=== PATIENT | male | born 1960 ===

== ENCOUNTER → 2020-06-17 10:22 | Outpatient (BNVA) | payer OTHER, SELFPAY | PROVIDERS: PCP Nurse Practitioner Family; Visit Provider Internal Medicine | DX: E66.9 Obesity, unspecified (principal); G47.33 Obstructive sleep apnea (adult) (pediatric); Z99.89 Dependence on other enabling machines and devices | CPT/HCPCS: 99212 ==

== ENCOUNTER 2020-12-29 07:13 | Outpatient (REF) | payer OTHER, SELFPAY ==
[2020-12-29 12:30] LABS: Alanine Aminotransferase 34 U/L (0-40); Albumin Level 4.2 g/dL (3.5-5.0); Alkaline Phosphatase 83 U/L (39-117); Anion Gap 15 (12-20); Aspartate Amino Transferase 20 U/L (5-37); Bilirubin Total 1.1 mg/dL (0.0-1.0); Blood Urea Nitrogen 15 mg/dL (9-16); Calcium 9.3 mg/dL (8.4-10.2); Carbon Dioxide 22 mmol/L (22-29); Chloride 108 mmol/L (96-108); Cholesterol 192 mg/dL; Estimated Glomerular Filt Rate > 60; Glucose Fasting 110 mg/dL (60-99); HDL Cholesterol 48 mg/dL; LDL Cholesterol Calculated 105 mg/dl; Potassium 4.1 mmol/L (3.3-5.1); Sodium 141 mmol/L (135-145); TSH reflex Free T4 2.91 uIU/mL (0.32-4.0); Triglycerides 199 mg/dL
[2020-12-29 13:10] LABS: Prostate Specific Antigen Scr 0.25 ng/mL (<0.05-4.0)
== END 2020-12-29 07:14 | disposition home or self-care (01) ==
LOC: HO.HMGCLDS 07:13
PROVIDERS: PCP Nurse Practitioner Family; Visit Provider Nurse Practitioner Family
DX: Z12.5 Encounter for screening for malignant neoplasm of prostate (principal); I10 Essential (primary) hypertension
CPT/HCPCS: 36415; 80053; 80061; 84153; 84443

== ENCOUNTER 2021-01-01 10:49 | Outpatient (REF) | payer OTHER, SELFPAY ==
--- NOTE | ~2021-01-01 | XR_ITS ---
EXAMINATION: XR HAND, BILATERAL CLINICAL INFORMATION: Anesthesia of skin. COMPARISON: None TECHNIQUE: 3 views each hand. FINDINGS: No significant bone, joint or soft tissue abnormality is seen. XR/XR hand RT min 3V IMPRESSION: Negative exam.
--- NOTE | ~2021-01-01 | XR_ITS ---
EXAMINATION: XR HAND, BILATERAL CLINICAL INFORMATION: Anesthesia of skin. COMPARISON: None TECHNIQUE: 3 views each hand. FINDINGS: No significant bone, joint or soft tissue abnormality is seen. XR/XR hand LT min 3V IMPRESSION: Negative exam.
== END 2021-01-01 10:50 | disposition home or self-care (01) ==
LOC: HO.HMGCX 10:49
PROVIDERS: PCP Nurse Practitioner Family; Visit Provider Nurse Practitioner Family
DX: Z13.89 Encounter for screening for other disorder (principal)
CPT/HCPCS: 73130

== ENCOUNTER 2021-03-04 07:43 | Outpatient (REF) | payer OTHER, SELFPAY ==
--- NOTE | 2021-03-04 07:46 | EMG_ITS ---
Bilateral median and ulnar motor and sensory studies were performed. Bilateral radial sensory studies were performed and paraspinal muscles were tested. IMPRESSION: 1. [id number] right and moderately severe left median neuropathy across carpal tunnel. 2. Mild bilateral ulnar neuropathy across cubital tunnel. MD SHI Santos/OLIVIAL / [id number]
== END 2021-03-04 07:44 | disposition home or self-care (01) ==
LOC: HO.NEURO 07:43
PROVIDERS: PCP Nurse Practitioner Family; Visit Provider Nurse Practitioner Family
DX: R20.0 Anesthesia of skin (principal); R20.2 Paresthesia of skin
CPT/HCPCS: 95886; 95911

== ENCOUNTER → 2021-04-20 11:00 | Outpatient (BNVA) | payer OTHER, SELFPAY | PROVIDERS: PCP Nurse Practitioner Family; Visit Provider Orthopaedic Surgery ==

== ENCOUNTER 2022-05-24 12:11 | Outpatient (REF) | payer OTHER, SELFPAY ==
--- NOTE | ~2022-05-24 | XR_ITS ---
EXAMINATION: XR SHOULDER, LEFT CLINICAL INFORMATION: Shoulder pain COMPARISON: None TECHNIQUE: Left shoulder is imaged in 3 views. FINDINGS: No fracture, dislocation, or destructive process. No periostitis. The glenohumeral joint appears normal. The acromioclavicular alignment is normal. There are no visible rotator cuff calcifications. Some minor spurring is present at the greater tuberosity. There are osteoarthritic changes acromioclavicular joint. Mild spurring at origin deltoid. There is mild broad-based cortical thickening mid humerus likely related to deltoid insertion. XR/XR shoulder LT min 2V IMPRESSION: -Osteoarthritis acromioclavicular joint. -No visible rotator cuff calcifications.
== END 2022-05-24 12:12 | disposition home or self-care (01) ==
LOC: HO.HMGCX 12:11
PROVIDERS: PCP Nurse Practitioner Family; Visit Provider Physician Assistant
DX: M25.512 Pain in left shoulder (principal)
CPT/HCPCS: 73030

== ENCOUNTER 2022-09-16 08:18 | Outpatient (REF) | payer OTHER, SELFPAY ==
[2022-09-16 11:22] LABS: Appearance Urine Turbid; Color Urine Yellow; Glucose Urine UA Negative (Negative); Leukocyte Esterase Urine Negative (Negative); Nitrite Urine Negative (Negative); PH 5.5 (5.0-9.0); Urine Blood Negative (Negative); Urine Ketones Negative (Negative); Urine Protein Negative (Neg-Trace)
[2022-09-16 11:26] LABS: MANUAL DIFF FLAG NO
[2022-09-16 11:33] LABS: Basophils Absolute Auto 0.1 X10*3/uL (0.0-0.2); Basophils Percent Auto 0.9 % (0-2); Eosinophils Absolute Auto 0.2 X10*3/uL (0.0-0.4); Eosinophils Percent Auto 2.3 % (0-4); Hematocrit 45.9 % (42.0-52.0); Hemoglobin 14.9 g/dl (14.0-18.0); Imm Gran Abs Auto 0.01 X10*3/uL (0.00-0.03); Imm Gran Pct Auto 0.2 % (0.0-0.4); Lymphocytes Absolute Auto 3.2 X10*3/uL (1.2-4.9); Lymphocytes Percent Auto 48.5 % (20-40); Mean Corpuscular HGB Conc 32.5 g/dl (31.0-36.0); Mean Corpuscular Hemoglobin 28.7 pg (27.0-33.0); Mean Corpuscular Volume 88.4 fL (80.0-98.0); Mean Platelet Volume 10.6 fL (9.4-12.4); Monocytes Absolute Auto 0.8 X10*3/uL (0.1-1.2); Monocytes Percent Auto 11.7 % (2-11); Neutrophils Absolute Auto 2.4 x10*3/uL (2.0-8.3); Neutrophils Percent Auto 36.4 % (45-73); Platelet Count 297 X10*3/uL (160-400); Red Blood Count 5.19 X10*6/uL (4.60-5.80); Red Cell Distribution Width 13.4 % (11.0-16.0); White Blood Count 6.6 X10*3/uL (4.8-10.8)
[2022-09-16 12:15] LABS: Alanine Aminotransferase 31 U/L (0-40); Albumin Level 4.2 g/dL (3.5-5.0); Alkaline Phosphatase 79 U/L (39-117); Anion Gap 11 (12-20); Aspartate Amino Transferase 20 U/L (5-37); Bilirubin Total 1.6 mg/dL (0.0-1.0); Blood Urea Nitrogen 18 mg/dL (9-16); Calcium 9.3 mg/dL (8.4-10.2); Carbon Dioxide 25 mmol/L (22-29); Chloride 107 mmol/L (96-108); Cholesterol 210 mg/dL; Estimated Glomerular Filt Rate > 60; Glucose Fasting 107 mg/dL (60-99); HDL Cholesterol 46 mg/dL; LDL Cholesterol Calculated 136 mg/dl; Potassium 4.2 mmol/L (3.3-5.1); Prostate Specific Antigen Scr 0.42 ng/mL (<0.05-4.0); Sodium 139 mmol/L (135-145); TSH reflex Free T4 2.49 uIU/mL (0.32-4.0); Total Protein 7.1 g/dL (6.5-8.0); Triglycerides 140 mg/dL
== END 2022-09-16 08:19 | disposition home or self-care (01) ==
LOC: HO.HMGCLDS 08:18
PROVIDERS: PCP Nurse Practitioner Family; Visit Provider Nurse Practitioner Family
DX: Z00.00 Encounter for general adult medical examination without abnormal findings (principal); Z12.5 Encounter for screening for malignant neoplasm of prostate; I10 Essential (primary) hypertension
CPT/HCPCS: 36415; 80053; 80061; 81003; 84153; 84443; 85025

== ENCOUNTER 2023-03-15 13:23 | Outpatient (AMB) | payer OTHER, SELFPAY ==
--- NOTE | 2023-03-15 13:29 | A.OFFPC_ITS ---
Vital Signs 03/15/23 13:32 Height 6 ft Weight 290 lb BMI 39.3 BP 122/72 Blood Pressure Location Lt brachial Position Sitting Pulse 70 Pulse Source Pulse Oximeter Pulse Oximetry (%) 95 Oxygen Delivery Method Room Air Intake Visit Reasons: 6 month follow up Allergies No Known Allergies Allergy (Verified 03/15/23 13:33) Medication List - Last Reconciled 03/15/23 by ABBY Arreaga amlodipine 10 mg PO DAILY fluticasone propionate 50 mcg/actuation 2 sprays intranasal BID lisinopril 10 mg PO DAILY Tobacco use date assessed: 09/07/22 HPI 6 month follow up HPI Details HTN: Blood pressure is stable, managed with amlodipine 10mg and lisinopril 10mg. Encouraged pt to monitor his BP at home. Will order labs. Denies chest pain, shortness of breath, headache, dizziness, and blurred vision. [facility] Medical History Cubital tunnel syndrome Carpal tunnel syndrome Bilateral elbow tendonitis ETELVINA on CPAP Obesity (BMI 30-39.9) Social History Housing: House Patient Tobacco Use Status: Former Tobacco user Years Smoked: 12 yrs e-Cigarette/Vaping Use: Never Used Second Hand Smoke Exposure: No service: No Current occupational status: retired Current occupational exposures/hazards: No Cognitive needs: No Hearing needs: No Vision needs: No Questionnaire Thrive Questionnaire Date Thrive assessed: 12/23/20 Review of Systems Const Reports as per HPI Physical exam (Primary Care) Vital Signs: Last Vital Signs Pulse 70 03/15/23 13:32 BP 122/72 03/15/23 13:32 Pulse Ox 95 03/15/23 13:32 Oxygen Delivery Method Room Air 03/15/23 13:32 BMI result Body Mass Index 39.3 Tobacco/Smoking Status: Tobacco use Status Tobacco use date assessed 09/07/22 03/15/23 13:31 Patient Tobacco Use Status Former Tobacco user 03/15/23 13:31 e-Cigarette/Vaping Use Never Used 03/15/23 13:31 Thrive Assessment: Date of Thrive Assessment Date Thrive assessed 12/23/20 03/15/23 13:31 Const General: cooperative Nutritional Appearance: obese Orientation/consciousness: patient oriented x3 Resp Effort & Inspection: normal respiratory effort Auscultation: clear to auscultation bilaterally Cardio Rate: regular rate Rhythm: regular rhythm Heart sounds: S1 normal heart sound present and S2 normal heart sound present Neuro General: patient oriented x3 Extrem Right lower extremity: edema (trace) Left lower extremity: edema (trace) Psych Appearance: grossly normal Mental Status: mental status grossly normal Speech and movement: Normal speech and movement present Affect: normal affect Attitude: cooperative Thought process: Normal thought process present Thought content: Normal thought content present Insight: Good insight present (Psych) Judgement: Good judgement present (Psych) Assessment and Plan Assessment & Plan (1) HTN (hypertension): Code(s): I10 - Essential (primary) hypertension Plan: Labs ordered, pt to monitor BP at home Plan The patient agreed to the use of a medical genetics director for this encounter. Scribed for ABBY Orellana by Zoe Hazel medical genetics director, on 03/15/2023 at 13:45 EST. Orders: Orders Complete Blood Count Auto Diff Today I10 - Essential (primary) hypertension Comprehensive [place]. Panel Fast Today I10 - Essential (primary) hypertension Lipid Panel Today I10 - Essential (primary) hypertension Medications: Changed From fluticasone propionate 50 mcg/actuation 3 bottles please (90 day supply) 2 sprays intranasal BID To fluticasone propionate 50 mcg/actuation 3 bottles please (90 day supply). 4 sprays intranasal BID 16 grams 0RF 90 days Coding Level of Care Code Est Pt Level 3 (43540) Diagnoses HTN (hypertension) I10
[2023-03-15 13:32] VITALS: BP 122/72; PULSE 70; O2SAT 95; BMI 39.3
== END 2023-03-15 14:22 | disposition home or self-care (01) ==
PROVIDERS: Visit Provider Nurse Practitioner Family
DX: I10 Essential (primary) hypertension (principal)
CPT/HCPCS: 99213

== ENCOUNTER 2023-04-06 10:21 | Outpatient (REF) | payer OTHER, SELFPAY ==
[2023-04-06 13:18] LABS: MANUAL DIFF FLAG NO
[2023-04-06 13:29] LABS: Basophils Absolute Auto 0.1 X10*3/uL (0.0-0.2); Basophils Percent Auto 1.1 % (0-2); Eosinophils Absolute Auto 0.2 X10*3/uL (0.0-0.4); Hematocrit 41.8 % (42.0-52.0); Hemoglobin 13.9 g/dl (14.0-18.0); Imm Gran Abs Auto 0.03 X10*3/uL (0.00-0.03); Imm Gran Pct Auto 0.4 % (0.0-0.4); Lymphocytes Absolute Auto 2.7 X10*3/uL (1.2-4.9); Lymphocytes Percent Auto 35.8 % (20-40); Mean Corpuscular HGB Conc 33.3 g/dl (31.0-36.0); Mean Corpuscular Hemoglobin 29.7 pg (27.0-33.0); Mean Corpuscular Volume 89.3 fL (80.0-98.0); Monocytes Absolute Auto 0.9 X10*3/uL (0.1-1.2); Monocytes Percent Auto 11.3 % (2-11); Neutrophils Absolute Auto 3.7 x10*3/uL (2.0-8.3); Neutrophils Percent Auto 48.4 % (45-73); Platelet Count 336 X10*3/uL (160-400); Red Blood Count 4.68 X10*6/uL (4.60-5.80); Red Cell Distribution Width 13.2 % (11.0-16.0); White Blood Count 7.6 X10*3/uL (4.8-10.8)
[2023-04-06 13:38] LABS: Alanine Aminotransferase 34 U/L (0-40); Alkaline Phosphatase 73 U/L (39-117); Anion Gap 10 (12-20); Aspartate Amino Transferase 22 U/L (5-37); Bilirubin Direct 0.2 mg/dL (0.0-0.5); Bilirubin Total 0.7 mg/dL (0.0-1.0); Blood Urea Nitrogen 13 mg/dL (9-16); Carbon Dioxide 24 mmol/L (22-29); Chloride 108 mmol/L (96-108); Cholesterol 183 mg/dL (<200); Estimated Glomerular Filt Rate > 60; Glucose Fasting 108 mg/dL (60-99); HDL Cholesterol 39 mg/dL (>40); LDL Cholesterol Calculated 109 mg/dL (<100); Sodium 138 mmol/L (135-145); Total Protein 7.3 g/dL (6.5-8.0); Triglycerides 178 mg/dL (<150)
== END 2023-04-06 10:22 | disposition home or self-care (01) ==
LOC: HO.HMGCLDS 10:21
PROVIDERS: PCP Nurse Practitioner Family; Visit Provider Nurse Practitioner Family
DX: I10 Essential (primary) hypertension (principal); R17 Unspecified jaundice
CPT/HCPCS: 36415; 80053; 80061; 82248; 85025

== ENCOUNTER 2023-04-11 13:13 | Outpatient (AMB) | payer OTHER, SELFPAY ==
--- NOTE | 2023-04-11 14:08 | AM.OFFWIN_ITS ---
Intake Vital Signs 04/11/23 14:15 Height 6 ft Weight 292 lb BMI 39.6 BP 136/84 Blood Pressure Location Rt brachial Position Sitting Pulse 97 Pulse Source Pulse Oximeter Temp 97.0 F Temp Source Temporal Artery Scan Pulse Oximetry (%) 97 Oxygen Delivery Method Room Air Intake Visit Reasons: EP, cough ([phone]) Intake Note: pt is here today for started 2 weeks ago Patient Tobacco Use Status: Former Tobacco user Allergies No Known Allergies Allergy (Verified 04/11/23 14:08) Do you need a note to return to daycare/school/sports/work: No HPI HPI Comments History of Present Illness Details Patient is a 62-year-old male in today for sick visit. He states that over the past several days he has developed nonproductive cough, that is interrupting his ability to sleep at night. He states that his has been home sick with similar symptoms. Denies chest pain, shortness a breath, nausea, vomiting, diarrhea. Denies dizziness. States that he gets coughing spells can last a while. [facility] Medical History Cubital tunnel syndrome Carpal tunnel syndrome Bilateral elbow tendonitis ETELVINA on CPAP Obesity (BMI 30-39.9) Social History Housing: House Patient Tobacco Use Status: Former Tobacco user Years Smoked: 12 yrs e-Cigarette/Vaping Use: Never Used Second Hand Smoke Exposure: No service: No Current occupational status: retired Current occupational exposures/hazards: No Cognitive needs: No Hearing needs: No Vision needs: No Review of Systems Const Details: Constitutional : No Weight loss, No Fever, No Chills, Admits Fatigue, No Malaise ENT/Mouth : No sore throat, No Rhinorrhea Eyes: No Eye Pain, No Swelling, No Redness Cardiovascular : No Chest Pain, No SOB, No Dyspnea on Exertion, No Orthopnea, No Edema, No Palpitations Respiratory : Admits Cough, No Sputum, Admits Wheezing Gastrointestinal : No Nausea, No Vomiting, No Diarrhea, No Constipation, No abdominal Pain, No Hematochezia, No Melena Neuro : No Weakness, No Numbness, No Dizziness, No Headache Psych : No Anxiety/Panic, No Depression All other systems reviewed and are negative Physical Exam Vital Signs: Last Vital Signs Temp 97.0 F 04/11/23 14:15 Pulse 97 04/11/23 14:15 BP 150/80 H 04/11/23 14:15 Pulse Ox 97 04/11/23 14:15 Oxygen Delivery Method Room Air 04/11/23 14:15 BMI result Body Mass Index 39.6 Blood pressure was retaken in office in is stable. Vital signs have been reviewed and are stable. Const Other: Appearance: Alert.? Oriented X3.? No acute distress.? Head: Normocephalic, atraumatic, no step-offs or deformities ENT: TM intact, patient has some exotoses. Neck: Normal inspection.? Neck supple.?Full ROM. CVS: Normal heart rate and rhythm.? Pulses normal.? Respiratory: No respiratory distress.? Slight expiratory wheeze.? Neuro: Oriented X 3.? No motor deficit.? No sensory deficit. CN 2-12 intact General: cooperative and no acute distress Results Reviewed Results Reviewed: Will call patient with upper respiratory swab results. Assessment & Plan Assessment & Plan (1) Upper respiratory infection: Comment: Patient likely has upper respiratory infection due to family members at home being sick with similar symptoms. Patient's main complaint is cough. Will give short course of prednisone, benzonatate, and albuterol inhaler to assist with this. Patient has also been instructed to use interventions for symptomatic relief like drinking tea. Patient has been educated and stay hydrated. He has been educated on signs of worsening symptoms and when to present back to the walk-in or when to report to the emergency room. He is agreeable to this plan. Code(s): J06.9 - Acute upper respiratory infection, unspecified Qualifiers: URI type: unspecified URI Qualified Code(s): J06.9 - Acute upper respiratory infection, unspecified Plan: Patient should follow-up PCP. Plan Will call patient with swab results. Patient given medication for cough to be taken as directed. He has been educated on side effects of the medication. He has been educated on when to return to the walk-in clinic or when to report to the emergency room. Orders: Orders SARS-CoV2/FLU/RSV Today J06.9 - Acute upper respiratory infection, unspecified Medications: New prednisone 40 mg (2 x 20 mg) PO DAILY 10 tabs 0RF benzonatate 100 mg PO BID PRN 20 caps 0RF cough albuterol sulfate 90 mcg/actuation 2 puffs inhalation Q6H PRN 6.7 grams 0RF shortness of breath or wheezing Coding Level of Care Code Est Pt Level 3 (73696) Diagnoses Upper respiratory tract infection, unspecified type J06.9 URI type: unspecified URI Time Spent (min) 25
[2023-04-11 14:15] VITALS: BP 136/84; PULSE 97; TEMP 36.1; O2SAT 97; BMI 39.6
== END 2023-04-11 15:13 | disposition home or self-care (01) ==
PROVIDERS: PCP Nurse Practitioner Family; Visit Provider Nurse Practitioner Primary Care
DX: J06.9 Acute upper respiratory infection, unspecified (principal)
CPT/HCPCS: 99213

== ENCOUNTER 2023-04-11 16:06 | Outpatient (REF) | payer OTHER, SELFPAY ==
[2023-04-11 17:16] LABS: Influenza A PCR NEGATIVE (Negative); Influenza B PCR NEGATIVE (Negative); Resp Syncy Virus RNA Qual PCR NEGATIVE (Negative); SARS COV2 PCR INHOUSE NEGATIVE (Negative)
== END 2023-04-11 16:07 | disposition home or self-care (01) ==
LOC: HO.HMGCLNP 16:06
PROVIDERS: Visit Provider Nurse Practitioner Primary Care
DX: J06.9 Acute upper respiratory infection, unspecified (principal); Z11.52 Encounter for screening for COVID-19
CPT/HCPCS: 0241U

== ENCOUNTER 2023-05-17 09:14 | Outpatient (AMB) | payer OTHER, SELFPAY ==
--- NOTE | 2023-05-17 09:18 | MHC.PC.OV ---
Vital Signs 05/17/23 09:21 Weight 284 lb BP 130/90 H Blood Pressure Location Rt brachial Position Sitting Pulse 84 Pulse Source Pulse Oximeter Pulse Oximetry (%) 94 Oxygen Delivery Method Room Air Intake Visit Reasons: high blood pressure/after pneumonia Intake Note: Patient is here today as his blood pressure has been elevated after having pneumonia and mentioned he is still congested and experiencing SOB and has finished all meds that were given to him at the ED. Allergies No Known Allergies Allergy (Verified 05/17/23 09:23) Medication List - Last Reconciled 05/17/23 by JEFFREY Arreaga-SANKET albuterol sulfate 90 mcg/actuation 2 puffs inhalation Q6H PRN amlodipine 10 mg PO DAILY fluticasone propionate 50 mcg/actuation 4 sprays intranasal BID 90 days lisinopril 10 mg PO DAILY Tobacco use date assessed: 05/17/23 HPI high blood pressure/after pneumonia HPI Details Pt was seen in the ER on 04/23 c/o shortness of breath and cough. CT was negative for PE. Viral panel was negative. Pt was found to have atypical pneumonia. He was admitted requiring oxygen. Pt was started on IV ceftriaxone. He was weaned off oxygen. Pt was d/c on doxycycline x4 days. Pt reports doing better though he does have some ongoing fatigue. Pt does have crackles on exam. Will order chest XR and labs. Denies fever, chills, chest pain, and shortness of breath, though does have a residual cough (not as bad when first diagnosed) [facility] Medical History Cubital tunnel syndrome Carpal tunnel syndrome Bilateral elbow tendonitis ETELVINA on CPAP Obesity (BMI 30-39.9) Social History Housing: House Patient Tobacco Use Status: Former Tobacco user Years Smoked: 12 yrs e-Cigarette/Vaping Use: Never Used Second Hand Smoke Exposure: No service: No Current occupational status: retired Current occupational exposures/hazards: No Cognitive needs: No Hearing needs: No Vision needs: No Questionnaire Thrive Questionnaire Date Thrive assessed: 12/23/20 Review of Systems Const Reports as per HPI Physical exam (Primary Care) Vital Signs: Last Vital Signs Pulse 84 05/17/23 09:21 BP 130/90 H 05/17/23 09:21 Pulse Ox 94 05/17/23 09:21 Oxygen Delivery Method Room Air 05/17/23 09:21 Tobacco/Smoking Status: Tobacco use Status Tobacco use date assessed 05/17/23 05/17/23 09:24 Patient Tobacco Use Status Former Tobacco user 05/17/23 09:21 e-Cigarette/Vaping Use Never Used 05/17/23 09:21 Thrive Assessment: Date of Thrive Assessment Date Thrive assessed 12/23/20 05/17/23 09:21 Const General: cooperative Orientation/consciousness: patient oriented x3 Resp Effort & Inspection: normal respiratory effort Auscultation: crackles on the right at the base and in the mid lung sun Cardio Rate: regular rate Rhythm: regular rhythm Heart sounds: S1 normal heart sound present and S2 normal heart sound present Neuro General: patient oriented x3 Psych Appearance: grossly normal Mental Status: mental status grossly normal Speech and movement: Normal speech and movement present Affect: normal affect Attitude: cooperative Thought process: Normal thought process present Thought content: Normal thought content present Insight: Good insight present (Psych) Judgement: Good judgement present (Psych) Assessment and Plan Assessment & Plan (1) Upper respiratory infection: Code(s): J06.9 - Acute upper respiratory infection, unspecified Qualifiers: URI type: unspecified URI Qualified Code(s): J06.9 - Acute upper respiratory infection, unspecified Plan: Chest XR and labs ordered (2) Atypical pneumonia: Code(s): J18.9 - Pneumonia, unspecified organism Plan: repeat chest XR and blood work Plan The patient agreed to the use of a medical office manager for this encounter. Scribed for ABBY Orellana by Zoe Hazel medical office manager, on 05/17/2023 at 09:30 EST. Orders: Orders Comprehensive [place]. Panel Fast Today J06.9 - Acute upper respiratory infection, unspecified XR chest 2V Today J06.9 - Acute upper respiratory infection, unspecified Coding Level of Care Code Est Pt Level 3 (45348) Diagnoses Upper respiratory tract infection, unspecified type J06.9 URI type: unspecified URI Atypical pneumonia J18.9
[2023-05-17 09:21] VITALS: BP 130/90; PULSE 84; O2SAT 94
== END 2023-05-17 10:11 | disposition home or self-care (01) ==
PROVIDERS: PCP Nurse Practitioner Family; Visit Provider Nurse Practitioner Family
DX: J06.9 Acute upper respiratory infection, unspecified (principal); J18.9 Pneumonia, unspecified organism
CPT/HCPCS: 99213

== ENCOUNTER 2023-05-17 09:42 | Outpatient (REF) | payer OTHER, SELFPAY ==
--- NOTE | ~2023-05-17 | XR_ITS ---
EXAMINATION: XR CHEST CLINICAL INFORMATION: Acute upper respiratory infection COMPARISON: None available. TECHNIQUE: 2 views of the chest were obtained. FINDINGS: Heart size upper limits of normal. No evidence of CHF. No pleural effusions. There is patchy consolidation present in the posterior basal segment of the left lower lobe consistent with pneumonia. XR/XR chest 2V IMPRESSION: Left lower lobe pneumonia.
[2023-05-17 11:28] LABS: MANUAL DIFF FLAG NO
[2023-05-17 11:42] LABS: Basophils Absolute Auto 0.1 X10*3/uL (0.0-0.2); Basophils Percent Auto 1.1 % (0-2); Eosinophils Absolute Auto 0.8 X10*3/uL (0.0-0.4); Eosinophils Percent Auto 9.7 % (0-4); Hematocrit 41.2 % (42.0-52.0); Hemoglobin 13.5 g/dl (14.0-18.0); Imm Gran Abs Auto 0.01 X10*3/uL (0.00-0.03); Imm Gran Pct Auto 0.1 % (0.0-0.4); Lymphocytes Absolute Auto 2.8 X10*3/uL (1.2-4.9); Lymphocytes Percent Auto 34.9 % (20-40); Mean Corpuscular HGB Conc 32.8 g/dl (31.0-36.0); Mean Corpuscular Hemoglobin 28.4 pg (27.0-33.0); Mean Corpuscular Volume 86.7 fL (80.0-98.0); Monocytes Absolute Auto 0.9 X10*3/uL (0.1-1.2); Neutrophils Absolute Auto 3.5 x10*3/uL (2.0-8.3); Neutrophils Percent Auto 43.2 % (45-73); Platelet Count 352 X10*3/uL (160-400); Red Blood Count 4.75 X10*6/uL (4.60-5.80); Red Cell Distribution Width 13.2 % (11.0-16.0)
[2023-05-17 12:29] LABS: Alanine Aminotransferase 31 U/L (0-40); Albumin Level 4.1 g/dL (3.5-5.0); Alkaline Phosphatase 100 U/L (39-117); Anion Gap 16 (12-20); Aspartate Amino Transferase 16 U/L (5-37); Bilirubin Total 0.7 mg/dL (0.0-1.0); Blood Urea Nitrogen 11 mg/dL (9-16); Calcium 9.3 mg/dL (8.4-10.2); Carbon Dioxide 22 mmol/L (22-29); Chloride 105 mmol/L (96-108); Estimated Glomerular Filt Rate > 60; Ferritin 393 ng/mL (20-250); Glucose Fasting 116 mg/dL (60-99); Iron 60 mcg/dL (45-160); Percent Iron Saturation 25 % (15-50); Potassium 4.1 mmol/L (3.3-5.1); Sodium 139 mmol/L (135-145); Total Iron Binding Capacity 239 mcg/dL (228-428); Total Protein 7.8 g/dL (6.5-8.0); Unsaturated Iron Binding 179 ug/dL
[2023-05-17 12:45] LABS: Folate 12.4 ng/mL (> or = 4.0); Vitamin B12 368 pg/mL (200-900)
[2023-05-19 12:43] LABS: Hematocrit 40.7 % (38.5-50.0); Hemoglobin 13.6 g/dL (13.2-17.1); MCH 28.9 pg (27.0-33.0); MCV 86.4 fL (80.0-100.0); RBC 4.71 Million/uL (4.20-5.80); RDW 13.1 % (11.0-15.0)
== END 2023-05-17 09:43 | disposition home or self-care (01) ==
LOC: HO.HMGCX 09:42
PROVIDERS: PCP Nurse Practitioner Family; Visit Provider Nurse Practitioner Family
DX: J06.9 Acute upper respiratory infection, unspecified (principal); D64.9 Anemia, unspecified; J18.9 Pneumonia, unspecified organism; R17 Unspecified jaundice
CPT/HCPCS: 36415; 71046; 80053; 82607; 82728; 82746; 83020; 83540; 85014; 85018; 85025; 85041

== ENCOUNTER 2023-08-28 12:10 | Outpatient (REF) | payer OTHER, SELFPAY ==
[2023-08-28 13:36] LABS: MANUAL DIFF FLAG NO
[2023-08-28 13:55] LABS: Basophils Absolute Auto 0.1 X10*3/uL (0.0-0.2); Basophils Percent Auto 0.8 % (0-2); Eosinophils Absolute Auto 0.1 X10*3/uL (0.0-0.4); Eosinophils Percent Auto 2.2 % (0-4); Hematocrit 45.1 % (42.0-52.0); Hemoglobin 15.1 g/dl (14.0-18.0); Imm Gran Abs Auto 0.02 X10*3/uL (0.00-0.03); Imm Gran Pct Auto 0.3 % (0.0-0.4); Lymphocytes Absolute Auto 2.8 X10*3/uL (1.2-4.9); Lymphocytes Percent Auto 43.9 % (20-40); Mean Corpuscular HGB Conc 33.5 g/dl (31.0-36.0); Mean Corpuscular Hemoglobin 28.9 pg (27.0-33.0); Mean Corpuscular Volume 86.2 fL (80.0-98.0); Mean Platelet Volume 10.3 fL (9.4-12.4); Monocytes Absolute Auto 0.7 X10*3/uL (0.1-1.2); Monocytes Percent Auto 10.6 % (2-11); Neutrophils Absolute Auto 2.7 x10*3/uL (2.0-8.3); Neutrophils Percent Auto 42.2 % (45-73); Platelet Count 314 X10*3/uL (160-400); Red Blood Count 5.23 X10*6/uL (4.60-5.80); Red Cell Distribution Width 13.7 % (11.0-16.0); White Blood Count 6.3 X10*3/uL (4.8-10.8)
[2023-08-28 14:14] LABS: Alanine Aminotransferase 42 U/L (0-40); Albumin Level 4.1 g/dL (3.5-5.0); Alkaline Phosphatase 86 U/L (39-117); Anion Gap 12 (12-20); Aspartate Amino Transferase 23 U/L (5-37); Bilirubin Total 0.8 mg/dL (0.0-1.0); Blood Urea Nitrogen 11 mg/dL (9-16); Calcium 9.5 mg/dL (8.4-10.2); Carbon Dioxide 26 mmol/L (22-29); Chloride 104 mmol/L (96-108); Estimated Glomerular Filt Rate > 60; Glucose Random 110 mg/dL (60-115); Potassium 3.8 mmol/L (3.3-5.1); Sodium 138 mmol/L (135-145); Total Protein 7.6 g/dL (6.5-8.0)
== END 2023-08-28 12:11 | disposition home or self-care (01) ==
LOC: HO.HMGCLDS 12:10
PROVIDERS: PCP Nurse Practitioner Family; Visit Provider Nurse Practitioner Family
DX: J18.9 Pneumonia, unspecified organism (principal); R17 Unspecified jaundice
CPT/HCPCS: 36415; 80053; 85025

== ENCOUNTER 2023-09-12 13:38 | Outpatient (AMB) | payer OTHER, SELFPAY ==
--- NOTE | 2023-09-12 13:40 | A.OFFPC_ITS ---
Vital Signs 09/12/23 13:43 Height 6 ft Weight 293 lb BMI 39.7 BP 130/84 Blood Pressure Location Rt brachial Position Sitting Pulse 76 Pulse Source Pulse Oximeter Pulse Oximetry (%) 98 Oxygen Delivery Method Room Air Intake Visit Reasons: Annual PE Intake Note: Patient here for physical exam. Colon: Allergies No Known Allergies Allergy (Verified 09/12/23 15:24) Medication List - Last Reconciled 09/12/23 by ABBY Arreaga albuterol sulfate 90 mcg/actuation 2 puffs inhalation Q6H PRN fluticasone propionate 50 mcg/actuation 4 sprays intranasal BID 90 days lisinopril-hydrochlorothiazide 20-12.5 mg 1 tab PO DAILY metoprolol succinate ER 50 mg PO DAILY Tobacco use date assessed: 05/17/23 Dental Screening Dental Screen Date: 09/12/23 Did you have a dental visit in the last 12 months?: Yes Did you have a dental problem in the last 6 months where you did not have access to dental care?: No Was dental information given to patient?: Patient has dentist HPI Annual PE HPI Details Pt is here for a PE. Will order labs. Colon screen is up to date. Due for PSA, will order. Pt does report some dribbling with urination and weak stream. Pt was referred to urology but missed his appointment, he will call to schedule an appointment. Pt's liver enzymes were elevated. Most likely related to poor diet. Will order abdominal US and hepatitis screen. ED reported, will send sildenafil [facility] Medical History Cubital tunnel syndrome Carpal tunnel syndrome Bilateral elbow tendonitis ETELVINA on CPAP Obesity (BMI 30-39.9) Social History Housing: House Patient Tobacco Use Status: Former Tobacco user Years Smoked: 12 yrs e-Cigarette/Vaping Use: Never Used Second Hand Smoke Exposure: No service: No Current occupational status: retired Current occupational exposures/hazards: No Cognitive needs: No Hearing needs: No Vision needs: No Questionnaire Thrive Questionnaire Date Thrive assessed: 12/23/20 AUDIT C Alcohol Use Questionnaire (AUDIT-C) 1. How often do you have a drink containing alcohol?: Monthly or less 2. How many drinks containing alcohol do you have on a typical day when you are drinking?: 1 or 2 3. How often do you have six or more drinks on one occasion?: Never Total Score: 1 Score Reviewed/Action Taken: No Review of Systems Const Denies chills and Denies fever(s) Eyes Denies blurry vision ENT Denies vertigo, Denies dizziness and Denies sore throat Card Denies chest pain at rest, Denies chest pain with activity, Denies diaphoresis, Denies dyspnea and Denies dyspnea on exertion Resp Denies cough, Denies dyspnea, Denies dyspnea on exertion and Denies wheezing GI Denies abdominal pain, Denies melena, Denies hematochezia, Denies constipation, Denies diarrhea and Denies loose stools Denies hematuria Musc Denies numbness and Denies tingling Skin/Breast Denies lesions Neuro Denies vertigo, Denies dizziness, Denies numbness and Denies tingling Psych Denies anxiety, Denies depression, Denies homicidal ideation, Denies suicidal ideation and Denies other (substance abuse) Aller/Immun Denies wheezing Physical exam (Primary Care) Vital Signs: Last Vital Signs Pulse 76 09/12/23 13:43 BP 130/84 09/12/23 13:43 Pulse Ox 98 09/12/23 13:43 Oxygen Delivery Method Room Air 09/12/23 13:43 BMI result Body Mass Index 39.7 Tobacco/Smoking Status: Tobacco use Status Tobacco use date assessed 05/17/23 09/12/23 13:40 Patient Tobacco Use Status Former Tobacco user 09/12/23 13:40 e-Cigarette/Vaping Use Never Used 09/12/23 13:40 Thrive Assessment: Date of Thrive Assessment Date Thrive assessed 12/23/20 09/12/23 13:40 Const General: cooperative Nutritional Appearance: obese Orientation/consciousness: patient oriented x3 HENMT Head: Yes normal to inspection, Yes normocephalic and Yes atraumatic Ears: TM's normal bilaterally Eyes General: appearance normal, both eyes and all related structures Alignment and Position: alignment normal and position normal Neck Neck: Yes normal visual inspection and Yes no lymphadenopathy Thyroid: Thyroid normal Resp Effort & Inspection: normal respiratory effort Auscultation: clear to auscultation bilaterally Cardio Rate: regular rate Rhythm: regular rhythm Heart sounds: S1 normal heart sound present, S2 normal heart sound present and no murmurs GI Palpation (GI): Soft to palpation and nontender Auscultation: normal bowel sounds Male General Exam: Yes normal external exam Penis: normal penis Scrotum: scrotum normal, testes descended bilaterally and no inguinal hernias Testes: no testicular mass Skin Rashes: no rashes Neuro General: patient oriented x3, moves all extremities, no focal motor deficits and deep tendon reflexes 2+ bilaterally Romberg Test: Negative Psych Appearance: grossly normal Mental Status: mental status grossly normal Speech and movement: Normal speech and movement present Affect: normal affect Attitude: cooperative Thought process: Normal thought process present Thought content: Normal thought content present Insight: Good insight present (Psych) Judgement: Good judgement present (Psych) Assessment and Plan Assessment & Plan (1) Screening PSA (prostate specific antigen): Code(s): Z12.5 - Encounter for screening for malignant neoplasm of prostate Plan: PSA ordered (2) Elevated liver enzymes: Code(s): R74.8 - Abnormal levels of other serum enzymes Plan: US and hepatitis screen (3) Encounter for routine adult physical exam with abnormal findings: Code(s): Z00.01 - Encounter for general adult medical examination with abnormal findings (4) HTN (hypertension): Code(s): I10 - Essential (primary) hypertension Plan: pt will send me more BPs via the portal Plan The patient agreed to the use of a pesticide use medical coordinator for this encounter. Scribed for ABBY Orellana by Zoe Hazel pesticide use medical coordinator, on 09/12/2023 at 14:00 EST. Orders: Orders Complete Blood Count Auto Diff Today Z00.00 - Encounter for general adult medical examination without abnormal findings Comprehensive [place]. Panel Fast Today Z00.00 - Encounter for general adult medical examination without abnormal findings TSH reflex Free T4 Today Z00.00 - Encounter for general adult medical examination without abnormal findings UA CC w/rflx Micro + Cult Today Z00.00 - Encounter for general adult medical examination without abnormal findings Lipid Panel Today Z00.00 - Encounter for general adult medical examination without abnormal findings Prostate Specific Antigen Scr Today Z12.5 - Encounter for screening for malignant neoplasm of prostate Hepatitis A,B,C Profile Today R74.8 - Abnormal levels of other serum enzymes US abdomen complete Today R74.8 - Abnormal levels of other serum enzymes Medications: New meloxicam 15 mg PO DAILY PRN 30 tabs 0RF pain sildenafil administer 30 minutes to 4 hours before activity 25 mg PO DAILY 10 days PRN 10 tabs 0RF sexual activity Coding Level of Care Code Est Pt Prev Care 40-64y(16215) Diagnoses Screening PSA (prostate specific antigen) Z12.5 Elevated liver enzymes R74.8 Encounter for routine adult physical exam with abnormal findings Z00.01 HTN (hypertension) I10
[2023-09-12 13:43] VITALS: BP 130/84; PULSE 76; O2SAT 98; BMI 39.7
== END 2023-09-12 14:25 | disposition home or self-care (01) ==
PROVIDERS: PCP Nurse Practitioner Family; Visit Provider Nurse Practitioner Family
DX: Z00.01 Encounter for general adult medical examination with abnormal findings (principal); Z12.5 Encounter for screening for malignant neoplasm of prostate; F52.21 Male erectile disorder; I10 Essential (primary) hypertension; R74.8 Abnormal levels of other serum enzymes
CPT/HCPCS: 99213; 99396

== ENCOUNTER 2023-10-09 11:14 | Outpatient (REF) | payer OTHER, SELFPAY ==
--- NOTE | ~2023-10-09 | US_ITS ---
EXAMINATION: US ABDOMEN COMPLETE CLINICAL INFORMATION: Elevated liver enzymes. COMPARISON: Ultrasound renal with Doppler 10/04/2016. TECHNIQUE: Real-time imaging of the abdominal viscera. Technically limited study secondary to bowel gas and body habitus. FINDINGS: PANCREAS: The pancreas is not well seen due to bowel gas. ABDOMINAL AORTA: There are limited views of the abdominal aorta. The visualized portions demonstrate normal caliber. INFERIOR VENA CAVA: There are limited views of the inferior vena cava. No abnormalities demonstrated. LIVER: The right lobe of the liver is enlarged measuring 17 cm. The liver contour is normal. There is diffuse increased liver parenchymal echogenicity, consistent with hepatic steatosis. No focal hepatic lesion. There is no intrahepatic biliary duct dilatation seen. GALLBLADDER: Normal. The gallbladder is physiologically distended without evidence of stones, sludge, polyps, wall thickening or pericholecystic fluid. COMMON BILE DUCT: Normal in caliber measuring 0.3 cm in diameter. RIGHT KIDNEY: Normal. No hydronephrosis. No renal calculi or focal parenchymal lesions. The kidney measures 11.6 cm in maximum dimension. LEFT KIDNEY: Normal. No hydronephrosis. No renal calculi or focal parenchymal lesions. The kidney measures 12.3 cm in maximum dimension. SPLEEN: Normal. The spleen measures 10.2 cm in maximum dimension. FREE FLUID: None. US/US abdomen complete IMPRESSION: 1. Enlarged fatty liver. 2. Limited views of the pancreas, abdominal aorta and inferior vena cava.
[2023-10-09 13:13] LABS: Appearance Urine Clear; Color Urine Yellow; Glucose Urine UA Negative (Negative); Leukocyte Esterase Urine Negative (Negative); Nitrite Urine Negative (Negative); Urine Blood Negative (Negative); Urine Ketones Negative (Negative); Urine Protein Negative (Neg-Trace)
[2023-10-09 13:25] LABS: MANUAL DIFF FLAG NO
[2023-10-09 13:47] LABS: Basophils Absolute Auto 0.1 X10*3/uL (0.0-0.2); Basophils Percent Auto 1.1 % (0-2); Eosinophils Absolute Auto 0.1 X10*3/uL (0.0-0.4); Hematocrit 44.7 % (42.0-52.0); Hemoglobin 14.8 g/dl (14.0-18.0); Imm Gran Abs Auto 0.01 X10*3/uL (0.00-0.03); Imm Gran Pct Auto 0.2 % (0.0-0.4); Lymphocytes Absolute Auto 2.9 X10*3/uL (1.2-4.9); Lymphocytes Percent Auto 45.3 % (20-40); Mean Corpuscular HGB Conc 33.1 g/dl (31.0-36.0); Mean Corpuscular Hemoglobin 29.2 pg (27.0-33.0); Mean Corpuscular Volume 88.2 fL (80.0-98.0); Mean Platelet Volume 10.4 fL (9.4-12.4); Monocytes Absolute Auto 0.7 X10*3/uL (0.1-1.2); Monocytes Percent Auto 10.2 % (2-11); Neutrophils Absolute Auto 2.6 x10*3/uL (2.0-8.3); Neutrophils Percent Auto 41.2 % (45-73); Platelet Count 294 X10*3/uL (160-400); Red Blood Count 5.07 X10*6/uL (4.60-5.80); Red Cell Distribution Width 13.9 % (11.0-16.0); White Blood Count 6.4 X10*3/uL (4.8-10.8)
[2023-10-09 14:17] LABS: Alanine Aminotransferase 38 U/L (0-40); Alkaline Phosphatase 80 U/L (39-117); Anion Gap 12 (12-20); Aspartate Amino Transferase 19 U/L (5-37); Bilirubin Total 0.7 mg/dL (0.0-1.0); Blood Urea Nitrogen 15 mg/dL (9-16); Calcium 9.5 mg/dL (8.4-10.2); Carbon Dioxide 25 mmol/L (22-29); Chloride 106 mmol/L (96-108); Cholesterol 222 mg/dL (<200); Estimated Glomerular Filt Rate > 60; Glucose Fasting 123 mg/dL (60-99); HDL Cholesterol 43 mg/dL (>40); LDL Cholesterol Calculated 143 mg/dL (<100); Potassium 4.2 mmol/L (3.3-5.1); Sodium 139 mmol/L (135-145); TSH reflex Free T4 1.63 uIU/mL (0.32-4.0); Total Protein 7.3 g/dL (6.5-8.0); Triglycerides 181 mg/dL (<150)
[2023-10-09 14:19] LABS: Prostate Specific Antigen Scr 0.35 ng/mL (<0.05-4.0)
[2023-10-10 05:21] LABS: HBS Num1 253.64 mIU/mL (0-7.99); HBc Num1 0.09 S/CO (0.00-0.79); HBsAGNum1 0.41 S/CO (0.00-0.99); Hepatitis A Antibody IgM 0.14 Index (0-0.79); Hepatitis B Core Antibody Nonreactive (Nonreactive); Hepatitis B Surface Antigen Negative (Negative); ~HepC Num1 0.08 S/CO (0.00-0.79); ~Hepatitis A Antibody IgM Nonreactive (Nonreactive); ~Hepatitis B Surface Antibody REACTIVE (Nonreactive); ~Hepatitis C Antibody Nonreactive (Nonreactive)
== END 2023-10-09 11:15 | disposition home or self-care (01) ==
LOC: HO.HMGCX 11:14
PROVIDERS: PCP Nurse Practitioner Family; Visit Provider Nurse Practitioner Family
DX: Z00.00 Encounter for general adult medical examination without abnormal findings (principal); R74.8 Abnormal levels of other serum enzymes; Z12.5 Encounter for screening for malignant neoplasm of prostate
CPT/HCPCS: 36415; 76700; 80053; 80061; 81003; 84153; 84443; 85025; 86704; 86706; 86709; 86803; 87340

== ENCOUNTER 2024-01-09 14:13 | Outpatient (AMB) | payer OTHER, SELFPAY ==
--- NOTE | 2024-01-09 14:24 | AM.OFFWIN_ITS ---
Intake Vital Signs 01/09/24 14:32 Height 6 ft Weight 296 lb BMI 40.1 BP 138/88 Blood Pressure Location Lt radial Position Sitting Pulse 73 Pulse Source Pulse Oximeter Temp 99.0 F Temp Source Oral Pulse Oximetry (%) 98 Oxygen Delivery Method Room Air Intake Visit Reasons: EP cold symptoms/COVID + [phone] Intake Note: pt c/o cold symptoms/positive Covid on 01/08/24 . Symptoms started Monday. Feeling a little bit better today. Fever has resolved Patient Tobacco Use Status: Former Tobacco user Allergies No Known Allergies Allergy (Verified 01/09/24 14:28) Do you need a note to return to daycare/school/sports/work: No HPI HPI Comments History of Present Illness Details Patient is a 63-year-old male complaining of 4 days of a cough, head congestion, sore throat. He states his daughter came home from college with COVID and him and his have becomes symptomatic and tested and they are both positive for COVID. He states that 8 months ago he was hospitalized for 1 week with a double pneumonia and he wants to prevent that from happening again. He states he has been taking DayQuil during the day but nothing at night to try to help his symptoms. He has also increased his fluid intake. He denies any fevers, nausea vomiting or diarrhea or ear pain. [facility] Medical History Cubital tunnel syndrome Carpal tunnel syndrome Bilateral elbow tendonitis ETELVINA on CPAP Obesity (BMI 30-39.9) Social History Housing: House Patient Tobacco Use Status: Former Tobacco user Years Smoked: 12 yrs e-Cigarette/Vaping Use: Never Used Second Hand Smoke Exposure: No service: No Current occupational status: retired Current occupational exposures/hazards: No Cognitive needs: No Hearing needs: No Vision needs: No Review of Systems Const All systems reviewed & are unremarkable except as noted in HPI and below Physical Exam Vital Signs: Last Vital Signs Temp 99.0 F 01/09/24 14:32 Pulse 73 01/09/24 14:32 BP 138/88 01/09/24 14:32 Pulse Ox 98 09/03/24 14:32 Oxygen Delivery Method Room Air 01/09/24 14:32 BMI result Body Mass Index 40.1 Const General: cooperative, healthy appearing, comfortable and no acute distress Orientation/consciousness: patient oriented x3 Limitations: no limitations HEENT Head: Yes normal to inspection Ears: hearing grossly normal bilaterally, external ears normal, TM normal on the right (Erythematous) and TM abnormal wth effusion, erythematous and with loss of landmarks General nose exam: Normal external nose present, Normal nares present and No nasal discharge present Face and sinus: Yes normal facial exam and Yes sinuses nontender Mouth: Normal oral and palatal mucosa present and moist mucous membranes Throat: Yes tonsils normal, Yes uvula midline and Yes posterior oropharynx abnormal (Erythema) Eyes General: appearance normal, both eyes and all related structures Neck Neck: Yes normal visual inspection Resp Effort & Inspection: normal respiratory effort, able to speak in complete sentences, Actively coughing, no respiratory distress, not tachypneic, no tripod positioning and no use of accessory muscles Auscultation: clear to auscultation bilaterally Cardio Rate: regular rate Rhythm: regular rhythm Heart sounds: normal S1 and S2 Skin General skin exam: no rashes or lesions noted Neuro General: patient oriented x3 Extrem General: Yes normal to inspection and Yes no clubbing, cyanosis or edema Assessment & Plan Assessment & Plan (1) Otitis media: Code(s): H66.90 - Otitis media, unspecified, unspecified ear Qualifiers: Otitis media type: mucoid Chronicity: acute Laterality: left Qualified Code(s): H65.192 - Other acute nonsuppurative otitis media, left ear Plan: Sent amoxicillin for left otitis media, recommended using Mucinex and other [id number] medications to treat his symptoms. Recommended continuing to increase his fluid intake, monitor symptoms and follow up with his PCP or the ED if not resolving. Plan See above Medications: New amoxicillin 875 mg PO Q12H 10 tabs 0RF Coding Level of Care Code Est Pt Level 3 (71719) Diagnoses Acute mucoid otitis media of left ear H65.192 Otitis media type: mucoid Chronicity: acute Laterality: left
[2024-01-09 14:32] VITALS: BP 138/88; PULSE 73; TEMP 37.2; O2SAT 98; BMI 40.1
== END 2024-01-09 15:05 | disposition home or self-care (01) ==
PROVIDERS: PCP Nurse Practitioner Family; Visit Provider Physician Assistant
DX: H65.192 Other acute nonsuppurative otitis media, left ear (principal)
CPT/HCPCS: 99213

== ENCOUNTER 2024-01-23 11:00 | Outpatient (REF) | payer OTHER, SELFPAY ==
[2024-01-23 14:37] LABS: Alanine Aminotransferase 47 U/L (0-40); Alkaline Phosphatase 87 U/L (39-117); Anion Gap 12 (12-20); Aspartate Amino Transferase 26 U/L (5-37); Blood Urea Nitrogen 10 mg/dL (9-16); Calcium 9.7 mg/dL (8.4-10.2); Carbon Dioxide 26 mmol/L (22-29); Chloride 104 mmol/L (96-108); Cholesterol 142 mg/dL (<200); Estimated Glomerular Filt Rate > 60; Glucose Fasting 118 mg/dL (60-99); HDL Cholesterol 32 mg/dL (>40); LDL Cholesterol Calculated 71 mg/dL (<100); Potassium 4.4 mmol/L (3.3-5.1); Sodium 138 mmol/L (135-145); Total Protein 7.1 g/dL (6.5-8.0); Triglycerides 199 mg/dL (<150)
== END 2024-01-23 11:01 | disposition home or self-care (01) ==
LOC: HO.HMGCLDS 11:00
PROVIDERS: PCP Nurse Practitioner Family; Visit Provider Nurse Practitioner Family
DX: E78.5 Hyperlipidemia, unspecified (principal)
CPT/HCPCS: 36415; 80053; 80061

== ENCOUNTER 2024-03-18 13:48 | Outpatient (AMB) | payer OTHER, SELFPAY ==
--- NOTE | 2024-03-18 13:54 | A.OFFPC_ITS ---
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 Denies chest pain, shortness of breath, headache, dizziness, and blurred vision. Pt's fasting blood sugar was previously elevated. Educated pt on proper diet and portion sizes. Will order labs. Denies polyuria, polydipsia, and neuropathy. Pt will be going back to work. [facility] Medical History Cubital tunnel syndrome Carpal tunnel syndrome Bilateral elbow tendonitis ETELVINA on CPAP Obesity (BMI 30-39.9) Social History Housing: House Patient Tobacco Use Status: Former Tobacco user Years Smoked: 12 yrs e-Cigarette/Vaping Use: Never Used Second Hand Smoke Exposure: No service: No Current occupational status: retired Current occupational exposures/hazards: No Cognitive needs: No Hearing needs: No Vision needs: No Questionnaire Thrive Questionnaire Date Thrive assessed: 12/23/20 I am a: Patient What is your living situation today?: I choose not to answer this question Within the past 12 months, did the food you bought not last and you didn't have the money to get more?: I choose not to answer this question Within the past 12 months, did you worry whether your food would run out before you got money to buy more?: I choose not to answer this question Do you have trouble paying for medicines?: I choose not to answer this question Do you have trouble getting transportation to medical appointments?: I choose not to answer this question Do you have trouble paying your heating and electricity bill?: I choose not to answer this question Do you have trouble taking care of your child, family member or friend?: I choose not to answer this question Do you have trouble with day-to-day activities such as bathing, preparing meals, shopping, managing finances, etc.?: I choose not to answer this question Are you currently unemployed and looking for a job?: I choose not to answer this question Are you interested in more education?: I choose not to answer this question Please select the resources that you would like help with: None Currently or been in a relationship where the following occur: I choose not to answer THRIVE Score: 0 AUDIT C Alcohol Use Questionnaire (AUDIT-C) 1. How often do you have a drink containing alcohol?: Never Total Score: 0 CARMELITA-7 AMB Questionnaire CARMELITA-7 Feeling nervous, anxious, or on edge: 0 = Not at all Not being able to stop or control worryin = Not at all Worrying too much about different things: 0 = Not at all Trouble relaxin = Not at all Being so restless that it is hard to sit still: 0 = Not at all Becoming easily annoyed or irritable: 0 = Not at all Feeling afraid as if something awful might happen: 0 = Not at all Total CARMELITA-7 score (0-4 normal; 5-9 mild; 10-14 moderate; 15-21 severe): 0 Source: Developed by Drs. Kenan Leslie, Rosa Ayoub, Glen Camarena and colleagues, with an educational jr from [employer]. Review of Systems Const Reports as per HPI Physical exam (Primary Care) Vital Signs: Last Vital Signs Pulse 74 03/18/24 13:55 BP 130/80 03/18/24 13:55 Pulse Ox 97 03/18/24 13:55 Oxygen Delivery Method Room Air 03/18/24 13:55 BMI result Body Mass Index 39.2 Tobacco/Smoking Status: Tobacco use Status Tobacco use date assessed 05/17/23 03/18/24 13:54 Patient Tobacco Use Status Former Tobacco user 03/18/24 13:54 e-Cigarette/Vaping Use Never Used 03/18/24 13:54 Thrive Assessment: Date of Thrive Assessment Date Thrive assessed 12/23/20 03/18/24 13:54 Currently or been in a relationship where the following occur: I choose not to answer Const General: cooperative Nutritional Appearance: obese Orientation/consciousness: patient oriented x3 Resp Auscultation: clear to auscultation bilaterally Cardio Rate: regular rate Rhythm: regular rhythm Heart sounds: S1 normal heart sound present, S2 normal heart sound present and no murmurs Neuro General: patient oriented x3 Psych Appearance: grossly normal Mental Status: mental status grossly normal Speech and movement: Normal speech and movement present Affect: normal affect Attitude: cooperative Thought process: Normal thought process present Thought content: Normal thought content present Insight: Good insight present (Psych) Judgement: Good judgement present (Psych) Coding Level of Care Code Est Pt Level 3 (13481) Diagnoses HTN (hypertension) I10 Elevated fasting blood sugar R73.01 Assessment & Plan Assessment & Plan (1) HTN (hypertension): Code(s): I10 - Essential (primary) hypertension Category: Medical Plan: Stable (2) Elevated fasting blood sugar: Code(s): R73.01 - Impaired fasting glucose Category: Medical Plan: Educated on proper diet and portion sizes Plan The patient agreed to the use of a expert medical writer for this encounter. Scribed for ABBY Orellana by Zoe Hazel expert medical writer, on 03/18/2024 at 14:30 EST. Orders: Orders Complete Blood Count Auto Diff Today I10 - Essential (primary) hypertension, R73.01 - Impaired fasting glucose Comprehensive [place]. Panel Fast Today I10 - Essential (primary) hypertension, R73.01 - Impaired fasting glucose UA CC w/rflx Micro + Cult Today I10 - Essential (primary) hypertension, R73.01 - Impaired fasting glucose Lipid Panel Today I10 - Essential (primary) hypertension, R73.01 - Impaired fasting glucose TSH reflex Free T4 Today I10 - Essential (primary) hypertension, R73.01 - Impaired fasting glucose
[2024-03-18 13:55] VITALS: BP 130/80; PULSE 74; O2SAT 97; BMI 39.2
== END 2024-03-18 14:48 | disposition home or self-care (01) ==
PROVIDERS: PCP Nurse Practitioner Family; Visit Provider Nurse Practitioner Family
DX: I10 Essential (primary) hypertension (principal); R73.01 Impaired fasting glucose

== ENCOUNTER → 2024-03-18 13:48 | Outpatient (BNVA) | payer OTHER, SELFPAY | PROVIDERS: PCP Nurse Practitioner Family; Visit Provider Nurse Practitioner Family | DX: I10 Essential (primary) hypertension (principal); R73.01 Impaired fasting glucose | CPT/HCPCS: 99212 ==